=== PATIENT | male | born 1945 | race Caucasian/White ===

== ENCOUNTER 2021-06-29 11:40 | Inpatient (IN) | payer MEDICARE ==
[~2021-06-29] VITALS: Ht 185.4 cm; Wt 91.1 kg
[2021-06-29] VITALS (7 sets, daily range): BP systolic 88–114; BP diastolic 51–77
[2021-06-29] MEDS ORDERED: OCTREOTIDE 500 MCG in SODIUM CHLORIDE 0.9% 99 ML IV PRN (12:30)
[2021-06-29] MEDS ORDERED: ONDANSETRON 2MG/ML, 2ML IVPush ONE (12:30)
[2021-06-29] MEDS ORDERED: PANTOPRAZOLE 80 MG in SODIUM CHLORIDE 0.9% 50 ML IVPB ONE (12:30)
[2021-06-29] MEDS ORDERED: SODIUM CHLORIDE 0.9% 1,000ML IVBOLUS ONE (12:30)
[2021-06-29] MEDS ORDERED: OCTREOTIDE 100MCG/ML, 1ML (0.1MG/ML) IV ONE (12:30)
--- NOTE | 2021-06-29 12:35 | NUR ---
REPORT TAKEN FROM KATHLEEN DESAI, THIS RN ASSUMING CARE.
[2021-06-29] MEDS ORDERED: PANTOPRAZOLE 80 MG in SODIUM CHLORIDE 0.9% 100 ML IV SCH ×2 (12:45→16:00)
[2021-06-29 12:51] LABS: MEAN CORPUSCULAR HEMOGLOBIN 30.8 pg (27.5-34.5); MEAN PLATELET VOLUME 8.2 fL (7.4-10.4); PLATELET COUNT 167 x10^3/uL (130-400); RED BLOOD COUNT 3.93 x10^6/uL (4.38-5.82)
[2021-06-29 13:02] LABS: ALANINE AMINOTRANSFERASE 172 U/L (12-78); ANION GAP 15 mmol/L (5-15); CALCIUM 7.9 mg/dL (8.5-10.1); CHLORIDE 95 mmol/L (98-107); CREATININE 1.56 mg/dL (0.7-1.3)
[2021-06-29] MEDS ORDERED: ONDANSETRON 2MG/ML, 2ML ONE ×2 (13:02→19:54)
[2021-06-29] MEDS ORDERED: OCTREOTIDE 100MCG/ML, 1ML (0.1MG/ML) ONE (13:03)
[2021-06-29 13:07] LABS: ALKALINE PHOSPHATASE 328 U/L (45-117); BILIRUBIN,TOTAL 7.6 mg/dL (0.2-1.0); INTERNATIONAL NORMALIZED RATIO 1.72 (0.93-1.1); PROTHROMBIN TIME 17.9 Seconds (9.6-11.5); TOTAL PROTEIN 6.4 g/dL (6.4-8.2); TROPONIN I < 0.015 ng/mL (0.000-0.045)
[2021-06-29 13:16] LABS: BAND#(MANUAL) 1.34 x10^3/uL; BANDS%(MANUAL) 6 % (0-7); EOS#(MANUAL) 1.12 x10^3/uL (0.0-0.4); EOS% (MANUAL) 5 % (1-7); LYMPH#(MANUAL) 1.78 x10^3/uL (1-3.4); LYMPHS% (MANUAL) 8 % (22-44); METAMYELOCYTES# (MANUAL) 0.22 x10^3/uL (0-0); METAMYELOCYTES% (MANUAL) 1 % (0-1); MONOS#(MANUAL) 1.34 x10^3/uL (0.3-2.7); MONOS% (MANUAL) 6 % (2-9); SEGS% (MANUAL) 74 % (42-75)
[2021-06-29 13:17] LABS: ANISOCYTOSIS 1+; OVALOCYTES 1+; POLYCHROMASIA 1+
[2021-06-29 13:18] LABS: <PLATELET ESTIMATE> ADEQUATE; <PLT MORPHOLOGY> NORMAL PLT MORPH
--- NOTE | 2021-06-29 13:30 | NUR ---
PT REASSESSED BY NYDIA PINEDA, PER , RN TO HOLD BLOOD AT THIS TIME PT IS NO LONGER VOMITING, NORMOTENSIVE, H/H NOT CRITICAL. RIGHT EJ PLACED D/T POOR ACCESS, TWO ADDITIONAL PIV'S PLACED SUBSEQUENTLY BY TASK RN. PT A&O, RESPS EVEN AND UNLABORED, NSR RATE 80'S WITH NO ECTOPY. ALL MONITORS IN PLACE. CALL LIGHT IN REACH. DAUGHTER AT BEDSIDE.
--- NOTE | 2021-06-29 14:09 | NUR ---
BLOOD BANK NOTIFIED PT NOT REQUIRING BLOOD IN THIS MOMENT, PHYSICIAN REQUESTS BLOOD REMAINS ON HOLD
--- NOTE | 2021-06-29 14:35 | NUR ---
pt resting on gurney, no vomiting for last 90 min. pt is a&o, resps even and unlabored, nadn. protonix and octreotide infusing via IV pumps. nsr on engine monitor with no ectopy. daughter at bedside.
[2021-06-29] MEDS ORDERED: PHYTONADIONE 10 MG/ML, 1ML IV ONE (15:00)
[2021-06-29] MEDS ORDERED: PHYTONADIONE 10 MG in SODIUM CHLORIDE 0.9% 50 ML IV ONE (15:06)
[2021-06-29] MEDS ORDERED: SODIUM CHLORIDE FLUSH 10ML SYR IVF PRN (15:30)
--- NOTE | 2021-06-29 15:53 | NUR ---
PT SEEN AND EXAMINED BY HOSPITALIST, PT IS A&O, RESPS EVEN AND UNLABORED. SPEECH CLEAR. C/O BILATERAL UPPER ABD PAIN 02/04, STATES THIS HAS BEEN PRESENT X 2 WEEKS. SINUS TACH RATE 90'S ON SEAM RUBBER WITH NO ECTOPY. DAUGHTER AT BEDSIDE.
--- NOTE | 2021-06-29 15:59 | NUR ---
PT HAS NOT HAD URGE TO VOID SINCE ARRIVAL TO ED, [facility] NOTIFIED. HOSPITALIST NOTIFIED PT MEETING SOME SIRS CRITERIA (INCLUDING WBC 22). NO FURTHER ORDERS NOTED. Addendum: 06/29/21 at 1601 by ROMARIO PT HAS NOT HAD URGE TO VOID SINCE ARRIVAL TO ED, [facility] [employer] NOTIFIED. HOSPITALIST NOTIFIED PT MEETING SOME SIRS CRITERIA (INCLUDING WBC 22). NO FURTHER ORDERS RECEIVED.
[2021-06-29] MEDS ORDERED: GUAIFENESIN/DM 200-20MG, 10ML UDC PO PRN (16:00)
[2021-06-29] MEDS ORDERED: METHOCARBAMOL 500 MG TABLET PO PRN (16:00)
[2021-06-29] MEDS ORDERED: DOCUSATE 100 MG CAPSULE PO PRN (16:00)
[2021-06-29] MEDS ORDERED: morphine SULFATE 10 MG/ML, 1ML IVPush PRN (16:00)
[2021-06-29] MEDS ORDERED: IBUPROFEN 600 MG TABLET PO PRN (16:00)
[2021-06-29] MEDS ORDERED: SODIUM CHLORIDE 0.9% 1,000 ML IV SCH (16:00)
[2021-06-29] MEDS ORDERED: hydrALAzine 20 MG/ML, 1ML IVPush PRN (16:00)
[2021-06-29] MEDS ORDERED: ONDANSETRON 2MG/ML, 2ML IVPush PRN (16:00)
[2021-06-29] MEDS ORDERED: OXYcodone IR 5MG TABLET PO PRN (16:00)
--- NOTE | 2021-06-29 16:05 | NUR ---
MD COHN AT BEDSIDE, VERBAL ORDER RECEIVED FOR ROCEPHIN 2G IV AND BLOOD CULTURES X 2.
[2021-06-29] MEDS ORDERED: MIDAZOLAM 1 MG/ML, 5ML ONE (16:09)
[2021-06-29] MEDS ORDERED: FENTANYL PF 100 MCG/2ML ONE (16:09)
[2021-06-29] MEDS ORDERED: PROPOFOL 10 MG/ML, 20ML ONE (16:12)
[2021-06-29] MEDS ORDERED: CEFTRIAXONE 1,000 MG in DEXTROSE 5% 50 ML IVPB ONE (16:30)
[2021-06-29] MEDS ORDERED: PROPOFOL 10 MG/ML, 20ML IVPush ONE (16:30)
[2021-06-29] MEDS ORDERED: CEFTRIAXONE 1,000 MG IV ONE (16:30)
--- NOTE | 2021-06-29 16:31 | NUR ---
endscopy staff at bedside. consent signed for endoscopy with procedural sedation. pt a&o, resps even and unlabored, no complaint at this time. plasma infusing, no s/sx transfusion reaction.
--- NOTE | 2021-06-29 17:02 | NUR ---
endoscopy complete, endocopy RN at bedside to recover pt. all monitors in place.
--- NOTE | 2021-06-29 17:29 | NUR ---
breann not in ed [facility], requested from pharmacy. 1st unit thawed plasma complete. second unit requested from blood bank. pt a&o, resps even and unlabored, c/o abd pain. md muniz notified. declines to order pain medication at this time.
[2021-06-29 17:44] LABS: MEAN CORPUSCULAR HEMOGLOBIN 30.6 pg (27.5-34.5); MEAN CORPUSCULAR HGB CONC 32.6 g/dL (33.2-36.2); MEAN PLATELET VOLUME 8.2 fL (7.4-10.4); PLATELET COUNT 148 x10^3/uL (130-400); RED BLOOD COUNT 3.48 x10^6/uL (4.38-5.82); RED CELL DISTRIBUTION WIDTH 18.1 % (9.4-14.8)
[2021-06-29] MEDS: CEFTRIAXONE 2 GM in DEXTROSE 5% 50 ML IVPB SCH (18:08)
[2021-06-29 18:36] LABS: BAND#(MANUAL) 3.59 x10^3/uL; BANDS%(MANUAL) 15 % (0-7); EOS#(MANUAL) 0.24 x10^3/uL (0.0-0.4); EOS% (MANUAL) 1 % (1-7); LYMPH#(MANUAL) 1.43 x10^3/uL (1-3.4); LYMPHS% (MANUAL) 6 % (22-44); MONOS#(MANUAL) 0.72 x10^3/uL (0.3-2.7); MONOS% (MANUAL) 3 % (2-9); SEG#(MANUAL) 17.93 x10^3/uL (1.8-6.8); SEGS% (MANUAL) 75 % (42-75)
[2021-06-29 18:37] LABS: ANISOCYTOSIS 1+; ECHINOCYTES 1+; POLYCHROMASIA 1+
[2021-06-29 18:38] LABS: <PLATELET ESTIMATE> ADEQUATE; <PLT MORPHOLOGY> NORMAL PLT MORPH; OVALOCYTES 1+
--- NOTE | 2021-06-29 18:41 | NUR ---
THIS RN ATTEMPTED TO CALL REPORT X 1, UNABLE TO REACH RECEIVING RN
--- NOTE | 2021-06-29 19:00 | NUR ---
report given to CHELSEA House at bedside. pt a&o, resps even and unlabored, nadn. daughter at bedside.
[2021-06-29] MEDS ORDERED: MORPHINE SULFATE 4 MG/ML, 1ML ONE (19:55)
--- NOTE | 2021-06-29 20:00 | NUR ---
Pt to be admitted to room 427-2. Report called to CHELSEA MARTINEZ.
[2021-06-29] MEDS: OCTREOTIDE 500 MCG in SODIUM CHLORIDE 0.9% 99 ML IV PRN (22:42)
[2021-06-29 23:02] LABS: MICROSCOPIC INDICATED
[2021-06-30 01:01] VITALS: BP 89/63
[2021-06-30 02:44] VITALS: BP 98/67
[2021-06-30 04:23] VITALS: BP 93/57
[2021-06-30 05:12] LABS: ANION GAP 10 mmol/L (5-15); CALCIUM 7.3 mg/dL (8.5-10.1); CHLORIDE 103 mmol/L (98-107); CREATININE 1.24 mg/dL (0.7-1.3)
[2021-06-30 05:49] LABS: MEAN CORPUSCULAR HEMOGLOBIN 31.5 pg (27.5-34.5); MEAN CORPUSCULAR HGB CONC 33.2 g/dL (33.2-36.2); MEAN PLATELET VOLUME 8.3 fL (7.4-10.4); PLATELET COUNT 145 x10^3/uL (130-400); RED BLOOD COUNT 3.32 x10^6/uL (4.38-5.82); RED CELL DISTRIBUTION WIDTH 18.4 % (9.4-14.8)
[2021-06-30 06:27] LABS: BAND#(MANUAL) 0.86 x10^3/uL; BANDS%(MANUAL) 4 % (0-7); EOS#(MANUAL) 0.22 x10^3/uL (0.0-0.4); EOS% (MANUAL) 1 % (1-7); LYMPH#(MANUAL) 0.65 x10^3/uL (1-3.4); LYMPHS% (MANUAL) 3 % (22-44); METAMYELOCYTES# (MANUAL) 0.22 x10^3/uL (0-0); METAMYELOCYTES% (MANUAL) 1 % (0-1); MONOS#(MANUAL) 1.29 x10^3/uL (0.3-2.7); MONOS% (MANUAL) 6 % (2-9); SEG#(MANUAL) 18.28 x10^3/uL (1.8-6.8); SEGS% (MANUAL) 85 % (42-75)
[2021-06-30 06:28] LABS: OVALOCYTES 1+; POLYCHROMASIA 1+
[2021-06-30 06:29] LABS: <PLATELET ESTIMATE> ADEQUATE; <PLT MORPHOLOGY> NORMAL PLT MORPH; ANISOCYTOSIS 2+
[2021-06-30] MEDS ORDERED: SODIUM POLY SULFONATE UDC 15 GM/60 ML PO ONE (07:00)
[2021-06-30 07:25] VITALS: BP 112/76
[2021-06-30] MEDS ORDERED: DEXTROSE 50%, 50ML SYRINGE IVPush ONE (08:30)
[2021-06-30] MEDS ORDERED: INSULIN REGULAR 100 UNITS/ML, 3ML VIAL IVPush ONE (08:30)
[2021-06-30] MEDS ORDERED: SODIUM POLYSTYRENE SULFONATE ORAL SUSP PR ONE ×2 (08:30)
[2021-06-30] MEDS ORDERED: ALBUMIN HUMAN 25% 100 ML IV ONE (08:30)
[2021-06-30] MEDS: PANTOPRAZOLE 40 MG IV IVPush SCH ×2 (09:44→18:57)
[2021-06-30] MEDS: SODIUM CHLORIDE 0.9% 1,000 ML IV SCH (10:08)
[2021-06-30 12:50] VITALS: BP 103/66
[2021-06-30] MEDS: OCTREOTIDE 500 MCG in SODIUM CHLORIDE 0.9% 99 ML IV PRN (15:53)
[2021-06-30] MEDS: CEFTRIAXONE 2 GM in DEXTROSE 5% 50 ML IVPB SCH (18:18)
[2021-06-30 21:41] VITALS: BP 112/76
[2021-06-30 22:44] LABS: MEAN CORPUSCULAR HEMOGLOBIN 31.3 pg (27.5-34.5); MEAN CORPUSCULAR HGB CONC 33.1 g/dL (33.2-36.2); MEAN PLATELET VOLUME 8.3 fL (7.4-10.4); PLATELET COUNT 99 x10^3/uL (130-400); RED BLOOD COUNT 3.21 x10^6/uL (4.38-5.82); RED CELL DISTRIBUTION WIDTH 18.3 % (9.4-14.8)
[2021-06-30 23:24] LABS: ANION GAP 8 mmol/L (5-15); CALCIUM 7.6 mg/dL (8.5-10.1); CHLORIDE 104 mmol/L (98-107)
[2021-06-30 23:28] LABS: BAND#(MANUAL) 0.72 x10^3/uL; BANDS%(MANUAL) 4 % (0-7); EOS#(MANUAL) 0.72 x10^3/uL (0.0-0.4); EOS% (MANUAL) 4 % (1-7); LYMPHS% (MANUAL) 5 % (22-44); METAMYELOCYTES# (MANUAL) 0.36 x10^3/uL (0-0); METAMYELOCYTES% (MANUAL) 2 % (0-1); MONOS#(MANUAL) 1.25 x10^3/uL (0.3-2.7); MONOS% (MANUAL) 7 % (2-9); MYELOCYTES# (MANUAL) 0.18 x10^3/uL (0-0); MYELOCYTES% (MANUAL) 1 % (0-0); SEG#(MANUAL) 13.78 x10^3/uL (1.8-6.8); SEGS% (MANUAL) 77 % (42-75)
[2021-06-30 23:29] LABS: ANISOCYTOSIS 1+; OVALOCYTES 1+; POLYCHROMASIA 1+
[2021-06-30 23:30] LABS: <PLATELET ESTIMATE> DECREASED
[2021-06-30 23:31] LABS: <PLT MORPHOLOGY> NORMAL PLT MORPH
[2021-06-30 23:37] LABS: CREATININE 1.22 mg/dL (0.7-1.3)
[2021-07-01] MEDS ORDERED: LORazepam 0.5MG TABLET PO ONE (00:30)
[2021-07-01 00:50] VITALS: BP 110/72
[2021-07-01 02:00] VITALS: BP 96/64
[2021-07-01] MEDS: OCTREOTIDE 500 MCG in SODIUM CHLORIDE 0.9% 99 ML IV PRN ×2 (06:28→18:05)
[2021-07-01] MEDS: PANTOPRAZOLE 40 MG IV IVPush SCH ×2 (06:32→19:56)
[2021-07-01 06:53] VITALS: BP 116/80
[2021-07-01 08:12] LABS: MEAN CORPUSCULAR HEMOGLOBIN 31.4 pg (27.5-34.5); MEAN CORPUSCULAR HGB CONC 33.3 g/dL (33.2-36.2); MEAN PLATELET VOLUME 8.3 fL (7.4-10.4); PLATELET COUNT 81 x10^3/uL (130-400); RED BLOOD COUNT 3.16 x10^6/uL (4.38-5.82); RED CELL DISTRIBUTION WIDTH 18.9 % (9.4-14.8)
[2021-07-01 08:22] LABS: ANION GAP 4 mmol/L (5-15); CALCIUM 7.8 mg/dL (8.5-10.1); CHLORIDE 106 mmol/L (98-107); CREATININE 1.13 mg/dL (0.7-1.3)
[2021-07-01] MEDS ORDERED: LORazepam 1MG TABLET PO PRN ×4 (09:00)
[2021-07-01] MEDS ORDERED: LORazepam 2 MG/ML, 1ML IV PRN ×5 (09:00)
[2021-07-01] MEDS ORDERED: LORazepam 0.5MG TABLET PO PRN (09:00)
[2021-07-01 09:29] LABS: BAND#(MANUAL) 0.47 x10^3/uL; BANDS%(MANUAL) 3 % (0-7); EOS#(MANUAL) 0.47 x10^3/uL (0.0-0.4); EOS% (MANUAL) 3 % (1-7); LYMPH#(MANUAL) 1.58 x10^3/uL (1-3.4); LYMPHS% (MANUAL) 10 % (22-44); MONOS#(MANUAL) 1.26 x10^3/uL (0.3-2.7); MONOS% (MANUAL) 8 % (2-9); SEG#(MANUAL) 12.01 x10^3/uL (1.8-6.8); SEGS% (MANUAL) 76 % (42-75)
[2021-07-01 09:30] LABS: ANISOCYTOSIS 1+; POLYCHROMASIA 1+
[2021-07-01 09:31] LABS: <PLATELET ESTIMATE> DECREASED; <PLT MORPHOLOGY> NORMAL PLT MORPH; OVALOCYTES 1+
[2021-07-01 10:20] LABS: MICROSCOPIC NOT IND
[2021-07-01] MEDS: SODIUM CHLORIDE 0.9% 1,000 ML IV SCH ×2 (12:00→21:40)
[2021-07-01 13:14] VITALS: BP 110/72
[2021-07-01] MEDS: CEFTRIAXONE 2 GM in DEXTROSE 5% 50 ML IVPB SCH (18:43)
[2021-07-01] MEDS: TEMAZEPAM 15 MG CAPSULE PO PRN (19:56)
[2021-07-01 19:57] VITALS: BP 105/59
[2021-07-02 00:52] VITALS: BP 94/53
[2021-07-02] MEDS: PANTOPRAZOLE 40 MG IV IVPush SCH ×2 (06:28→20:03)
[2021-07-02 06:44] VITALS: BP 119/79
[2021-07-02 08:46] LABS: BASOPHILS % (AUTO) 1 % (0-1); EOSINOPHILS % (AUTO) 7 % (1-7); LYMPHOCYTES % (AUTO) 10 % (22-44); MEAN CORPUSCULAR HEMOGLOBIN 31.6 pg (27.5-34.5); MEAN PLATELET VOLUME 8.7 fL (7.4-10.4); MONOCYTES % (AUTO) 7 % (2-9); NEUTROPHILS % (AUTO) 75 % (42-75); PLATELET COUNT 92 x10^3/uL (130-400); RED BLOOD COUNT 3.15 x10^6/uL (4.38-5.82)
[2021-07-02 08:56] LABS: ANION GAP 7 mmol/L (5-15); CALCIUM 7.3 mg/dL (8.5-10.1); CHLORIDE 105 mmol/L (98-107); CREATININE 1.19 mg/dL (0.7-1.3)
[2021-07-02] MEDS: SODIUM CHLORIDE 0.9% 1,000 ML IV SCH ×2 (09:09→18:19)
[2021-07-02] MEDS ORDERED: FUROSEMIDE 40 MG/4 ML IV ONE (09:30)
[2021-07-02] MEDS ORDERED: LIDOCAINE 1%, 10ML ONE (11:05)
[2021-07-02 14:27] VITALS: BP 102/70
[2021-07-02] MEDS: CEFTRIAXONE 2 GM in DEXTROSE 5% 50 ML IVPB SCH (18:18)
[2021-07-02 19:45] VITALS: BP 97/66
[2021-07-02] MEDS: TEMAZEPAM 15 MG CAPSULE PO PRN ×2 (20:03→21:25)
[2021-07-03 00:01] VITALS: BP 109/73
[2021-07-03] MEDS: SODIUM CHLORIDE 0.9% 1,000 ML IV SCH ×2 (04:13→21:16)
[2021-07-03 05:14] LABS: OCCULT BLOOD POSITIVE (NEGATIVE)
[2021-07-03 06:33] LABS: ANION GAP 7 mmol/L (5-15); CALCIUM 7.6 mg/dL (8.5-10.1); CHLORIDE 101 mmol/L (98-107)
[2021-07-03 06:38] LABS: ALANINE AMINOTRANSFERASE 158 U/L (12-78); ALKALINE PHOSPHATASE 280 U/L (45-117); BILIRUBIN,TOTAL 9.5 mg/dL (0.2-1.0); CREATININE 1.27 mg/dL (0.7-1.3); TOTAL PROTEIN 6.2 g/dL (6.4-8.2)
[2021-07-03] MEDS: PANTOPRAZOLE 40 MG IV IVPush SCH ×2 (07:59→21:16)
[2021-07-03 08:05] VITALS: BP 92/50
[2021-07-03 08:27] LABS: BASOPHILS % (AUTO) 0 % (0-1); EOSINOPHILS % (AUTO) 4 % (1-7); LYMPHOCYTES % (AUTO) 11 % (22-44); MEAN CORPUSCULAR HEMOGLOBIN 30.8 pg (27.5-34.5); MEAN CORPUSCULAR HGB CONC 32.6 g/dL (33.2-36.2); MEAN PLATELET VOLUME 8.1 fL (7.4-10.4); MONOCYTES % (AUTO) 8 % (2-9); NEUTROPHILS % (AUTO) 76 % (42-75); PLATELET COUNT 79 x10^3/uL (130-400); RED BLOOD COUNT 3.21 x10^6/uL (4.38-5.82); RED CELL DISTRIBUTION WIDTH 19.3 % (9.4-14.8)
[2021-07-03 10:01] VITALS: BP 99/67
[2021-07-03 12:13] VITALS: BP 105/62
[2021-07-03] MEDS ORDERED: VANCOMYCIN PER PHARMACY MC PRN (14:00)
[2021-07-03] MEDS: MEROPENEM 1 GM in SODIUM CHLORIDE 0.9% 100 ML IV SCH ×2 (14:50→21:17)
[2021-07-03] MEDS: ALBUMIN HUMAN 25% 100 ML IV SCH (16:42)
[2021-07-03] MEDS: HYDROCORTISONE 100 MG INJ. IVPush SCH ×2 (16:42→21:17)
[2021-07-03 19:02] VITALS: BP 110/66
[2021-07-04] MEDS: ALBUMIN HUMAN 25% 100 ML IV SCH ×3 (00:46→18:47)
[2021-07-04 02:20] VITALS: BP 103/58
[2021-07-04] MEDS: HYDROCORTISONE 100 MG INJ. IVPush SCH ×3 (04:14→18:47)
[2021-07-04] MEDS: MEROPENEM 1 GM in SODIUM CHLORIDE 0.9% 100 ML IV SCH ×2 (05:44→12:50)
[2021-07-04 06:49] VITALS: BP 100/61
[2021-07-04] MEDS: PANTOPRAZOLE 40 MG IV IVPush SCH ×2 (08:48→18:47)
[2021-07-04] MEDS: SODIUM CHLORIDE 0.9% 1,000 ML IV SCH (09:02)
[2021-07-04 09:53] LABS: CHLORIDE 103 mmol/L (98-107)
[2021-07-04 10:01] LABS: ALANINE AMINOTRANSFERASE 133 U/L (12-78); ALKALINE PHOSPHATASE 241 U/L (45-117); ANION GAP 9 mmol/L (5-15); BILIRUBIN,TOTAL 12.4 mg/dL (0.2-1.0); CALCIUM 7.9 mg/dL (8.5-10.1); CREATININE 1.31 mg/dL (0.7-1.3); TOTAL PROTEIN 6.8 g/dL (6.4-8.2)
[2021-07-04] MEDS ORDERED: SODIUM CHLORIDE 0.9% IV ONE (11:00)
[2021-07-04] MEDS ORDERED: VANCOMYCIN IV ONE (11:00)
[2021-07-04] MEDS ORDERED: VANCOMYCIN 2,300 MG in SODIUM CHLORIDE 0.9% 500 ML IV ONE (11:00)
[2021-07-04 12:06] LABS: BASOPHILS % (AUTO) 1 % (0-1); EOSINOPHILS % (AUTO) 0 % (1-7); LYMPHOCYTES % (AUTO) 6 % (22-44); MEAN CORPUSCULAR HEMOGLOBIN 31.1 pg (27.5-34.5); MEAN CORPUSCULAR HGB CONC 32.7 g/dL (33.2-36.2); MEAN PLATELET VOLUME 8.6 fL (7.4-10.4); MONOCYTES % (AUTO) 5 % (2-9); NEUTROPHILS % (AUTO) 88 % (42-75); PLATELET COUNT 56 x10^3/uL (130-400); RED BLOOD COUNT 2.76 x10^6/uL (4.38-5.82); RED CELL DISTRIBUTION WIDTH 19.3 % (9.4-14.8)
[2021-07-04 12:51] VITALS: BP 95/60
[2021-07-04 18:36] VITALS: BP 100/60
[2021-07-04] MEDS ORDERED: EPINEPHRINE SYRINGE 0.1 MG/ML, 10ML ONE ×2 (21:48→23:51)
[2021-07-05] MEDS ORDERED: VANCOMYCIN 1,800 MG in SODIUM CHLORIDE 0.9% 250 ML IV SCH (05:00)
== END 2021-07-04 21:16 | DRG 432 ==
LOC: ED 15:44 → EDIP 18:20 → 4WST 20:16
PROVIDERS: ADMIT Internal Medicine; ATTEND Internal Medicine
PROC: 30233K1 Transfusion of Nonautologous Frozen Plasma into Peripheral Vein, Percutaneous Approach (ICD-10-PCS; 2021-06-29)
PROC: 5A12012 Performance of Cardiac Output, Single, Manual (ICD-10-PCS; 2021-06-29)
PROC: 06L38CZ Occlusion of Esophageal Vein with Extraluminal Device, Via Natural or Artificial Opening Endoscopic (ICD-10-PCS; 2021-06-29)
PROC: 0BH17EZ Insertion of Endotracheal Airway into Trachea, Via Natural or Artificial Opening (ICD-10-PCS; principal; 2021-06-29 16:15)
PROC: 0W9G3ZZ Drainage of Peritoneal Cavity, Percutaneous Approach (ICD-10-PCS; 2021-07-02)
DX: K70.31 Alcoholic cirrhosis of liver with ascites (principal); A41.9 Sepsis, unspecified organism; I85.11 Secondary esophageal varices with bleeding; G92 Toxic encephalopathy; R65.20 Severe sepsis without septic shock; E87.1 Hypo-osmolality and hyponatremia; N17.9 Acute kidney failure, unspecified; D62 Acute posthemorrhagic anemia; D68.4 Acquired coagulation factor deficiency; F10.231 Alcohol dependence with withdrawal delirium; B18.2 Chronic viral hepatitis C; E86.0 Dehydration; E87.5 Hyperkalemia; E87.70 Fluid overload, unspecified; E87.8 Other disorders of electrolyte and fluid balance, not elsewhere classified; F17.200 Nicotine dependence, unspecified, uncomplicated; G89.29 Other chronic pain; I46.9 Cardiac arrest, cause unspecified; K21.9 Gastro-esophageal reflux disease without esophagitis; K44.9 Diaphragmatic hernia without obstruction or gangrene; K72.90 Hepatic failure, unspecified without coma; Z51.5 Encounter for palliative care; Z80.42 Family history of malignant neoplasm of prostate; Z91.19 Patient's noncompliance with other medical treatment and regimen; Z79.899 Other long term (current) drug therapy
CPT/HCPCS: 36415; 49083; 71045; 76700; 80048; 80053; 81001; 81003; 82105; 82140; 82272; 82962; 83605; 83690; 83735; 84100; 84484; 85014; 85018; 85025; 85610; 85730; 86850; 86900; 86923; 87040; 87070; 87086; 87205; 89051; 92950; 93005; 96361; 96374; 96375; 99291; G0378; J0696; J1815; J1940; J2185; J2250; J2354; J2405; J2704; J3010; J3370; J3430; P9047; C9113; J1720; J2270; J7030; J7040; P9017